=== PATIENT | female | born 1995 | race Caucasian/White ===

== ENCOUNTER 2019-10-02 10:03 | Emergency (ER) | payer OTHER ==
[2019-10-02 10:35] VITALS: BP 133/85; PULSE 83; RESP 18; TEMP 98.3
--- NOTE | 2019-10-02 11:32 | ED ---
Skin/Abscess/FB HPI - General Chief complaint: Skin/Abscess/Foreign Body Stated complaint: poss infected spider bite Time Seen by Provider: 10/02/19 11:10 Source: patient Mode of arrival: ambulatory Limitations: no limitations - History of Present Illness Initial comments: Patient is a 24-year-old female presenting to the emergency Department with complaints of a possible infected spider bite on her right lower leg. Patient states she noticed the bite approximately 3 days ago and stated looks like just a red jayson then. Patient states then it started to drain some clear fluid and now it is very painful, red around the area. She denies any fever, chills, nausea or vomiting. She states that she does not want to get any worse. She denies being at this time. She has no further complaints at this time. Upon arrival to the ER, her vitals are stable. - Related Data Previous Rx's Medication Instructions Recorded Ibuprofen [Motrin] 600 mg PO Q6HR PRN #40 day 08/27/15 Cephalexin [Keflex] 500 mg PO Q6HR #28 cap 12/20/16 Cephalexin [Keflex] 500 mg PO Q6HR 5 Days #20 cap 10/02/19 Allergies Allergy/AdvReac Type Severity Reaction Status Date / Time No Known Allergies Allergy Verified 10/02/19 10:35 Review of Systems ROS Statement: Those systems with pertinent positive or pertinent negative responses have been documented in the HPI. ROS Other: All systems not noted in ROS Statement are negative. Past Medical History Past Medical History: No Reported History History of Any Multi-Drug Resistant Organisms: None Reported Past Surgical History: Appendectomy Past Psychological History: No Psychological Hx Reported Smoking Status: Current every day smoker Past Alcohol Use History: Occasional Past Drug Use History: Marijuana General Exam - General Exam Comments Initial Comments: GENERAL: Patient is well-developed and well-nourished. Patient is nontoxic and in no acute distress. HEAD: Atraumatic, normocephalic. EYES: Pupils equal round and reactive to light, extraocular movements intact, sclera anicteric, conjunctiva are normal. Eyelids were unremarkable. ENT: TMs normal, nares patent, oropharynx clear without exudates. Moist mucous membranes. NECK: Normal range of motion, supple without lymphadenopathy or JVD. LUNGS: Unlabored respirations. Breath sounds clear to auscultation bilaterally and equal. No wheezes rales or rhonchi. HEART: Regular rate and rhythm without murmurs, rubs or gallops. ABDOMEN: Soft, nontender, normoactive bowel sounds. No guarding, no rebound. No masses appreciated. : Deferred MUSCULOSKELETAL: Normal extremities with adequate strength and normal range of motion, no pitting or edema. No clubbing or cyanosis. NEUROLOGICAL: Normal speech, normal gait. Symmetrical smile. PSYCH: Normal mood, normal affect. SKIN: Warm, Dry, normal turgor, no rashes. Patient has a small papule on her right lower leg, medial aspect that does have surrounding erythema and pain with palpation. This area does not appear to be fluctuant or indurated. Limitations: no limitations Course Vital Signs 10/02/19 10:33 Temperature 98.3 F Pulse Rate 83 Respiratory 18 Rate Blood Pressure 133/85 O2 Sat by Pulse 100 Oximetry Medical Decision Making - Medical Decision Making Patient is a 24-year-old female here with some mild cellulitis of the right lower leg from a insect bite. Her vitals are stable, afebrile. I discussed with patient to use warm compresses to the area as well as a topical antibiotic. Patient was very concerned and requesting oral antiemetics. I will start her on Keflex for cellulitis. She will follow up with her PCP. She is stable for discharge and is in agreement with this plan of care. Orders were discussed with the patient she verbalized understanding. Case discussed with Dr. Anderson. Disposition Clinical Impression: Cellulitis of right lower leg Disposition: HOME SELF-CARE Condition: Stable Instructions (If sedation given, give patient instructions): Cellulitis (ED) Additional Instructions: Please return to the Emergency Department if symptoms worsen or any other concerns. Take antibiotics as prescribed. Follow-up with PCP. Prescriptions: Cephalexin [Keflex] 500 mg PO Q6HR 5 Days #20 cap Is patient prescribed a controlled substance at d/c from ED?: No Referrals: Nonstaff,Physician [Primary Care Provider] - 1-2 days
== END 2019-10-02 12:08 | disposition home or self-care (01) ==
LOC: EC 10:03
DX: L03.115 Cellulitis of right lower limb (principal); F17.200 Nicotine dependence, unspecified, uncomplicated; S80.861A Insect bite (nonvenomous), right lower leg, initial encounter; W57.XXXA Bitten or stung by nonvenomous insect and other nonvenomous arthropods, initial encounter; Y92.009 Unspecified place in unspecified non-institutional (private) residence as the place of occurrence of the external cause
CPT/HCPCS: 99283

== ENCOUNTER 2019-11-26 18:05 | Emergency (ER) | payer OTHER ==
[2019-11-26] MEDS ORDERED: PROPARACAINE 0.5% OPHTH DROPS 15 ML BTL BOTH EYES STA (18:15)
[2019-11-26] MEDS ORDERED: FLUORESCEIN STRIPS 1 MG STRIP BOTH EYES ONE (18:16)
--- NOTE | 2019-11-26 18:33 | ED ---
General Adult HPI - General Chief complaint: ENT Stated complaint: Right Eye Time Seen by Provider: 11/26/19 18:13 Source: patient, RN notes reviewed, old records reviewed Mode of arrival: ambulatory Limitations: no limitations - History of Present Illness Initial comments: 24-year-old female presenting with 2 separate issues. First complaint is of rig ht eye irritation. She states several weeks ago she thinks she got an eyelash in her eye and this began to be quite irritating. This has persisted there was a interval time of improvement however over the past several days it has worsened again she reports some blurry vision. And clear drainage. Denies fever or chills. Denies any specific injury to the eye. Second complaint, is suicidal ideation. She states she's had some recent loss, increased depression. She states she does think of suicide and states that she has several guns in the house. - Related Data Previous Rx's Medication Instructions Recorded Ibuprofen [Motrin] 600 mg PO Q6HR PRN #40 day 08/27/15 Cephalexin [Keflex] 500 mg PO Q6HR #28 cap 12/20/16 Cephalexin [Keflex] 500 mg PO Q6HR 5 Days #20 cap 10/02/19 Allergies Allergy/AdvReac Type Severity Reaction Status Date / Time No Known Allergies Allergy Verified 11/26/19 18:12 Review of Systems ROS Statement: Those systems with pertinent positive or pertinent negative responses have been documented in the HPI. ROS Other: All systems not noted in ROS Statement are negative. Past Medical History Past Medical History: No Reported History History of Any Multi-Drug Resistant Organisms: None Reported Past Surgical History: Appendectomy Past Psychological History: No Psychological Hx Reported Smoking Status: Current every day smoker Past Alcohol Use History: Occasional Past Drug Use History: Marijuana General Exam Limitations: no limitations General appearance: alert, in no apparent distress Head exam: Present: atraumatic, normocephalic Eye exam: Present: normal appearance, PERRL, EOMI, conjunctival injection. Absent: scleral icterus, periorbital swelling, periorbital tenderness ENT exam: Present: normal exam Neck exam: Present: normal inspection. Absent: tenderness, meningismus Respiratory exam: Present: normal lung sounds bilaterally, respiratory distress Cardiovascular Exam: Present: regular rate, normal rhythm GI/Abdominal exam: Present: soft. Absent: distended, tenderness, guarding Extremities exam: Present: normal inspection, normal capillary refill. Absent: pedal edema, calf tenderness Neurological exam: Present: alert, oriented X3, CN II-XII intact. Absent: motor sensory deficit Psychiatric exam: Present: depressed, suicidal ideation Skin exam: Present: warm, dry, intact. Absent: cyanosis, diaphoretic Course Vital Signs 11/26/19 18:09 Temperature 97.8 F Pulse Rate 91 Respiratory 18 Rate Blood Pressure 140/89 O2 Sat by Pulse 98 Oximetry - Reevaluation(s) Reevaluation #1: 11/26/19 18:41 Patient cleared for mental health evaluation. Reevaluation #2: 11/26/19 18:41 Regarding the patient's eye complaint, she does have conjunctivitis, the cornea is clear, there is no hyphema, this is reactive to light. She has a pressure of 13 in the right eye. There is no corneal abrasion noted on fluorescein exam. She is placed on erythromycin, she is provided this medication the emergency department and she will follow-up with ophthalmology. Medical Decision Making - Medical Decision Making Patient will follow-up with ophthalmology regarding her conjunctivitis and eye irritation. She had been evaluated by [facility] regarding her suicidal thoughts. She has signed a safety plan and will follow up as an outpatient. She is given resources in the emergency department. She has no active plans for suicide. Disposition Clinical Impression: Conjunctivitis, Depressed Disposition: HOME SELF-CARE Condition: Fair Instructions (If sedation given, give patient instructions): Conjunctivitis (ED), Depression (ED) Is patient prescribed a controlled substance at d/c from ED?: No Referrals: None,Stated [Primary Care Provider] - 1-2 days Cole Pillai MD [STAFF PHYSICIAN] - 1-2 days Kimberlee Shah MD [REFERRING] - 1-2 days Time of Disposition: 19:52
[2019-11-26] MEDS ORDERED: ERYTHROMYCIN 5 MG/GM OPHTH OINT 3.5 GM TUBE RIGHT EYE SCH (18:45)
[2019-11-26 20:13] VITALS: BP 126/86; PULSE 81; RESP 16; TEMP 97.9
[2019-11-26 23:49] LABS: Urine Alcohol Negative (Negative); Urine Barbiturate Negative (Negative); Urine Cocaine Negative (Negative); Urine Methadone Negative (Negative); Urine Opiates Negative (Negative); Urine Phencyclidine Negative (Negative)
== END 2019-11-26 20:00 | disposition home or self-care (01) ==
LOC: EC 18:05
DX: H10.9 Unspecified conjunctivitis (principal); R45.851 Suicidal ideations; F32.9 Major depressive disorder, single episode, unspecified; F17.200 Nicotine dependence, unspecified, uncomplicated
CPT/HCPCS: 80306; 82075; 99285

== ENCOUNTER 2020-01-04 10:37 | Emergency (ER) | payer OTHER ==
[2020-01-04 10:44] VITALS: RESP 18
[2020-01-04] MEDS ORDERED: KETOROLAC 15 MG/ML 1 ML VIAL IM STA (10:53)
[2020-01-04] MEDS ORDERED: methylPREDNISolone SOD SUCCI 125 MG/2 ML VIAL IM ONE (10:53)
[2020-01-04] MEDS ORDERED: DIAZEPAM 5 MG/ML 2 ML INJ IM ONE (10:53)
--- NOTE | 2020-01-04 10:57 | ED ---
General Adult HPI - General Chief complaint: Neck Pain/Injury Stated complaint: Neck Pain Time Seen by Provider: 01/04/20 10:45 Source: patient, RN notes reviewed, old records reviewed Mode of arrival: ambulatory Limitations: no limitations - History of Present Illness Initial comments: 24-year-old female presents emergency department today with 3 days of spasming over the left side of her neck into her left shoulder. She reports that she was doing some lifting and helping a friend move over the weekend. Patient states that she has not taken anything for pain. She reports that she had a called off for work today with the pain and spasming in her neck and shoulder. Patient reports no chest pain or shortness of breath. She denies any fevers or chills. Denies any headache. Patient denies any recent fever, chills, shortness of breath, chest pain, back pain, abdominal pain, nausea vomiting, dysuria or hematuria, constipation or diarrhea, headaches or visual changes, or any other current symptoms. - Related Data Previous Rx's Medication Instructions Recorded Ibuprofen [Motrin] 600 mg PO Q6HR PRN #40 day 08/27/15 Cephalexin [Keflex] 500 mg PO Q6HR #28 cap 12/20/16 Cephalexin [Keflex] 500 mg PO Q6HR 5 Days #20 cap 10/02/19 Naproxen [Naprosyn] 500 mg PO BID #20 tablet 01/04/20 Orphenadrine [Norflex] 100 mg PO Q12H #12 tablet.er 01/04/20 Allergies Allergy/AdvReac Type Severity Reaction Status Date / Time No Known Allergies Allergy Verified 01/04/20 10:44 Review of Systems ROS Statement: Those systems with pertinent positive or pertinent negative responses have been documented in the HPI. ROS Other: All systems not noted in ROS Statement are negative. Past Medical History Past Medical History: No Reported History History of Any Multi-Drug Resistant Organisms: None Reported Past Surgical History: Appendectomy Past Psychological History: No Psychological Hx Reported Smoking Status: Current every day smoker Past Alcohol Use History: Occasional Past Drug Use History: Marijuana General Exam - General Exam Comments Initial Comments: 24-year-old female. No acute distress. Limitations: no limitations General appearance: alert, in no apparent distress Head exam: Present: atraumatic, normocephalic, normal inspection Eye exam: Present: normal appearance, PERRL, EOMI. Absent: scleral icterus, conjunctival injection, periorbital swelling ENT exam: Present: normal exam, mucous membranes moist Neck exam: Present: tenderness (over left paraspinal cervical muscles ). Absent: normal inspection, meningismus, full ROM, lymphadenopathy Respiratory exam: Present: normal lung sounds bilaterally. Absent: respiratory distress, wheezes, rales, rhonchi, stridor Cardiovascular Exam: Present: regular rate, normal rhythm, normal heart sounds. Absent: systolic murmur, diastolic murmur, rubs, gallop, clicks GI/Abdominal exam: Present: soft, normal bowel sounds. Absent: distended, tend erness, guarding, rebound, rigid Extremities exam: Present: normal inspection, full ROM, normal capillary refill. Absent: tenderness, pedal edema, joint swelling, calf tenderness Back exam: Present: normal inspection Neurological exam: Present: alert, oriented X3, CN II-XII intact Course Vital Signs 01/04/20 10:41 Temperature 98.0 F Pulse Rate 79 Respiratory 18 Rate Blood Pressure 123/85 O2 Sat by Pulse 100 Oximetry Medical Decision Making - Medical Decision Making 24-year-old female presents returns today with neck spasms shooting down the left shoulder. Symptoms started this weekend after some lifting. She no fall or trauma to the neck. Patient was given IM pain medications reports improvement increased range of motion of her neck at this time. She has no falls or meningeal signs. Patient has no fever. I discussed Patient needs to take muscle accident have him try medicine and heat and ice over the neck to help with muscle spasm. Discussed return parameters and following up with primary care doctor. All questions answered. Disposition Clinical Impression: Cervical paraspinal muscle spasm Disposition: HOME SELF-CARE Condition: Good Instructions (If sedation given, give patient instructions): Cervical Sprain (ED) Additional Instructions: Patient has alternate between heat and ice in the neck and back. Follow-up with primary care doctor. Return to the ED if any alarming signs or symptoms occur. Prescriptions: Naproxen [Naprosyn] 500 mg PO BID #20 tablet Orphenadrine [Norflex] 100 mg PO Q12H #12 tablet.er Is patient prescribed a controlled substance at d/c from ED?: No Referrals: None,Stated [Primary Care Provider] - 1-2 days Clifford Sol [STAFF PHYSICIAN] - 1-2 days Time of Disposition: 11:25
[2020-01-04 11:53] VITALS: BP 122/86; PULSE 75; TEMP 97.8
== END 2020-01-04 11:41 | disposition home or self-care (01) ==
LOC: EC 10:37
DX: M62.838 Other muscle spasm (principal); F17.200 Nicotine dependence, unspecified, uncomplicated
CPT/HCPCS: 99283; 96372 ×3; J2930; J3360; J1885

== ENCOUNTER 2020-08-24 16:08 | Emergency (ER) | payer OTHER ==
[2020-08-24 16:14] VITALS: RESP 18
[2020-08-24 16:16] VITALS: TEMP 98
--- NOTE | 2020-08-24 16:39 | ED ---
URI HPI - General Chief Complaint: Upper Respiratory Infection Stated Complaint: URI Time Seen by Provider: 08/24/20 16:16 Source: patient Mode of arrival: ambulatory Limitations: no limitations - History of Present Illness Initial Comments: 25-year-old female presents emergency Department with a chief complaint of cough, congestion, rhinorrhea and bilateral ear pain. States the symptoms started approximately 3 days ago with no improvement of symptoms. She reports a nonproductive cough with some chills but no fevers. States she also has a bit or sore throat but also reports sinus congestion with clear bilateral rhinorrhea. Also reports bilateral otalgia but denies any pain when pulling the ears or discharge from the ears. She denies any associated chest pain, shortness of breath nausea vomiting or diarrhea. She smokes about one pack per day of cigarettes. - Related Data Previous Rx's Medication Instructions Recorded Ibuprofen [Motrin] 600 mg PO Q6HR PRN #40 day 08/27/15 Cephalexin [Keflex] 500 mg PO Q6HR #28 cap 12/20/16 Cephalexin [Keflex] 500 mg PO Q6HR 5 Days #20 cap 10/02/19 Naproxen [Naprosyn] 500 mg PO BID #20 tablet 01/04/20 Orphenadrine [Norflex] 100 mg PO Q12H #12 tablet.er 01/04/20 Allergies Allergy/AdvReac Type Severity Reaction Status Date / Time No Known Allergies Allergy Verified 08/24/20 16:14 Review of Systems ROS Statement: Those systems with pertinent positive or pertinent negative responses have been documented in the HPI. ROS Other: All systems not noted in ROS Statement are negative. Past Medical History Past Medical History: No Reported History History of Any Multi-Drug Resistant Organisms: None Reported Past Surgical History: Appendectomy Past Psychological History: No Psychological Hx Reported Smoking Status: Current every day smoker Past Alcohol Use History: None Reported Past Drug Use History: Marijuana General Exam Limitations: no limitations General appearance: alert, in no apparent distress Head exam: Present: atraumatic, normocephalic, normal inspection Eye exam: Present: normal appearance, PERRL, EOMI Pupils: Present: normal accommodation ENT exam: Present: normal exam, normal oropharynx, mucous membranes moist, TM's normal bilaterally, normal external ear exam Neck exam: Present: normal inspection, full ROM. Absent: tenderness Respiratory exam: Present: normal lung sounds bilaterally. Absent: respiratory distress, wheezes, rales, rhonchi, stridor Cardiovascular Exam: Present: regular rate, normal rhythm, normal heart sounds. Absent: systolic murmur GI/Abdominal exam: Present: soft. Absent: distended, tenderness, guarding, rebound, rigid Extremities exam: Present: normal inspection, full ROM, normal capillary refill. Absent: tenderness, pedal edema, joint swelling Back exam: Present: normal inspection, full ROM. Absent: tenderness, CVA tenderness (R), CVA tenderness (L), muscle spasm, paraspinal tenderness, vertebral tenderness Neurological exam: Present: alert, oriented X3 Psychiatric exam: Present: normal affect, normal mood Skin exam: Present: warm, dry, intact, normal color Course Vital Signs 08/24/20 16:11 Temperature 98.0 F Pulse Rate 87 Respiratory 18 Rate Blood Pressure 135/90 O2 Sat by Pulse 99 Oximetry Medical Decision Making - Medical Decision Making 25-year-old female presents emergency Department with a chief complaint of cough, congestion, rhinorrhea and bilateral ear pain. On physical examination, lungs are clear to auscultation. Patient is otherwise well-appearing. Chest x- ray is unremarkable. Covid negative. I suspect the patient has an upper respiratory infection. Advised to take [id number] antihistamines. Return parameters were thoroughly discussed the patient's understanding and agreeable. Case discussed with - Lab Data Lab Results 08/24/20 Range/Units 16:35 Coronavirus (PCR) Not Detected (Not Detectd) Disposition Clinical Impression: Acute upper respiratory infection Disposition: HOME SELF-CARE Condition: Stable Instructions (If sedation given, give patient instructions): Upper Respiratory Infection (ED) Additional Instructions: Please return to the Emergency Department if symptoms worsen or any other concerns. Is patient prescribed a controlled substance at d/c from ED?: No Referrals: None,Stated [Primary Care Provider] - 1-2 days Time of Disposition: 17:18
--- NOTE | 2020-08-24 16:48 | XR ---
EXAMINATION TYPE: XR chest 2V DATE OF EXAM: 08/24/2020 COMPARISON: NONE HISTORY: Rib pain TECHNIQUE: 2 views FINDINGS: Heart and mediastinum are normal. Lungs are clear. Diaphragm is normal. Bony thorax appears normal. IMPRESSION: Normal chest.
[2020-08-24 17:39] VITALS: BP 128/78; PULSE 82
== END 2020-08-24 17:39 | disposition home or self-care (01) ==
LOC: EC 16:08
DX: J06.9 Acute upper respiratory infection, unspecified (principal); F17.210 Nicotine dependence, cigarettes, uncomplicated
CPT/HCPCS: 71046; 87635; 99283

== ENCOUNTER 2023-08-05 06:16 | Emergency (ER) | payer OTHER ==
--- NOTE | 2023-08-05 06:46 | ED ---
Nausea/Vomiting/Diarrhea HPI - General Chief complaint: Nausea/Vomiting/Diarrhea Stated complaint: Vomiting Time Seen by Provider: 08/05/23 06:39 Source: patient, RN notes reviewed Mode of arrival: ambulatory Limitations: no limitations - History of Present Illness Initial comments: 28-year-old female presents emergency department with chief complaint of nausea vomiting. Patient states has been vomiting since 9 PM last night. Patient states she has minimal abdominal pain. She states she believes this is from her Wegovy in which she states she feels she gives out too much. Patient states that she has been on Wegovy for a while. Patient denies any fevers chills chest pain no dysuria no hematuria denies any chance of . Patient offers no other complaints. - Related Data Previous Rx's Medication Instructions Recorded Ibuprofen [Motrin] 600 mg PO Q6HR PRN #40 day 08/27/15 Cephalexin [Keflex] 500 mg PO Q6HR #28 cap 12/20/16 Cephalexin [Keflex] 500 mg PO Q6HR 5 Days #20 cap 10/02/19 Naproxen [Naprosyn] 500 mg PO BID #20 tablet 01/04/20 Orphenadrine [Norflex] 100 mg PO Q12H #12 tablet.er 01/04/20 Ondansetron Odt [Zofran Odt] 4 mg PO Q8HR PRN #20 tab 08/05/23 Allergies Allergy/AdvReac Type Severity Reaction Status Date / Time No Known Allergies Allergy Verified 08/05/23 06:35 Review of Systems ROS Statement: Those systems with pertinent positive or pertinent negative responses have been documented in the HPI. ROS Other: All systems not noted in ROS Statement are negative. Past Medical History Past Medical History: No Reported History History of Any Multi-Drug Resistant Organisms: None Reported Past Surgical History: Appendectomy Past Psychological History: No Psychological Hx Reported Smoking Status: Current every day smoker, Vaper Past Alcohol Use History: None Reported Past Drug Use History: Marijuana General Exam Limitations: no limitations General appearance: alert, in no apparent distress Head exam: Present: atraumatic, normocephalic, normal inspection Eye exam: Present: normal appearance, PERRL, EOMI. Absent: scleral icterus, conjunctival injection, periorbital swelling ENT exam: Present: normal exam, mucous membranes moist Neck exam: Present: normal inspection. Absent: tenderness, meningismus, lymphadenopathy Respiratory exam: Present: normal lung sounds bilaterally. Absent: respiratory distress, wheezes, rales, rhonchi, stridor Cardiovascular Exam: Present: regular rate, normal rhythm, normal heart sounds. Absent: systolic murmur, diastolic murmur, rubs, gallop, clicks GI/Abdominal exam: Present: soft, normal bowel sounds. Absent: distended, tenderness, guarding, rebound, rigid Course Vital Signs 08/05/23 08/05/23 06:34 09:14 Temperature 98.3 F 98.2 F Pulse Rate 85 87 Respiratory 18 18 Rate Blood Pressure 153/85 125/89 O2 Sat by Pulse 99 98 Oximetry Medical Decision Making - Medical Decision Making Was pt. sent in by a medical professional or institution (, PA, CAN FEEDER, urgent care, hospital, or residential...) When possible be specific @ -No Did you speak to anyone other than the patient for history (EMS, parent, family, police, friend...)? What history was obtained from this source @ -No Did you review nursing and triage notes (agree or disagree)? Why? @ -I reviewed and agree with nursing and triage notes Were old charts reviewed (outside hosp., previous admission, EMS record, old EKG, old radiological studies, urgent care reports/EKG's, residential records)? Report findings @ -No old charts were reviewed Differential Diagnosis (chest pain, altered mental status, abdominal pain women, abdominal pain men, vaginal bleeding, weakness, fever, dyspnea, syncope, headache, dizziness, GI bleed, back pain, seizure, CVA, palpatations, mental health, musculoskeletal)? @ -Differential Abdominal Pain Women: Appendicitis, Cholecystitis, diverticulosis, ischemic bowel, pancreatitis, hepatitis, UTI, gastroenteritis, AAA, incarcerated hernia, bowel obstruction, constipation, inflammatory bowel, hepatitis, peptic ulcer disease, splenic infarction, perforated viscus, vulvitis, ovarian torsion, PID, kidney stone, placenta abruption, this is not meant to be an all-inclusive list EKG interpreted by me (3pts min.). @ -None X-rays interpreted by me (1pt min.). @ -None done CT interpreted by me (1pt min.). @ -None done U/S interpreted by me (1pt. min.). @ -None done What testing was considered but not performed or refused? (CT, X-rays, U/S, labs)? Why? @ -Consider CT for leukocytosis though patient has no localized abdominal pain symptoms improved What meds were considered but not given or refused? Why? @ -None Did you discuss the management of the patient with other professionals (professionals i.e. , PA, CAN FEEDER, lab, RT, psych nurse, health and social care teacher, auto club travel counselor, teacher, real estate officer, case management coordinator)? Give summary @ -No Was smoking cessation discussed for >3mins.? @ -No Was critical care preformed (if so, how long)? @ -No Were there social determinants of health that impacted care today? How? (Homelessness, low income, unemployed, alcoholism, drug addiction, transportation, low edu. Level, literacy, decrease access to med. care, [place] [facility], rehab)? @ -No Was there de-escalation of care discussed even if they declined (Discuss DNR or withdrawal of care, Hospice)? DNR status @ -No What co-morbidities impacted this encounter? (DM, HTN, Smoking, COPD, CAD, Cancer, CVA, ARF, Chemo, Hep., AIDS, mental health diagnosis, sleep apnea, morbid obesity)? @ -None Was patient admitted / discharged? Hospital course, mention meds given and route, prescriptions, significant lab abnormalities, going to OR and other pertinent info. @ -Discharge patient presented for nausea vomiting after using Wegovy. Patient feels improved after IV fluids and antiemetics will be discharged in stable condition she did have mild leukocytosis most likely reactive as she has no localized abdominal pain Undiagnosed new problem with uncertain prognosis? @ -No Drug Therapy requiring intensive monitoring for toxicity (Heparin, Nitro, Insulin, Cardizem)? @ -No Were any procedures done? @ -No Diagnosis/symptom? @ -Nausea Acute, or Chronic, or Acute on Chronic? @ -Acute Uncomplicated (without systemic symptoms) or Complicated (systemic symptoms)? @ -Uncomplicated Side effects of treatment? @ -No Exacerbation, Progression, or Severe Exacerbation? @ -No Poses a threat to life or bodily function? How? (Chest pain, [place], [place], pneumonia, PE, COPD, DKA, ARF, appy, cholecystitis, CVA, Diverticulitis, Homicidal, Suicidal, threat to staff... and all critical care pts) @ -No - Lab Data Result diagrams: 08/05/23 06:50 08/05/23 06:50 Lab Results 08/05/23 08/05/23 08/05/23 Range/Units 06:50 06:50 08:12 WBC 17.4 H (3.8-10.6) k/uL RBC 5.80 H (3.80-5.40) m/uL Hgb 16.4 H (11.4-16.0) gm/dL Hct 49.2 H (34.0-46.0) % MCV 84.8 (80.0-100.0) fL MCH 28.3 (25.0-35.0) pg MCHC 33.3 (31.0-37.0) g/dL RDW 13.2 (11.5-15.5) % Plt Count 498 H (150-450) k/uL MPV 7.3 Neutrophils % 89 % Lymphocytes % 8 % Monocytes % 2 % Eosinophils % 1 % Basophils % 0 % Neutrophils # 15.4 H (1.3-7.7) k/uL Lymphocytes # 1.4 (1.0-4.8) k/uL Monocytes # 0.3 (0-1.0) k/uL Eosinophils # 0.1 (0-0.7) k/uL Basophils # 0.0 (0-0.2) k/uL Sodium 138 (137-145) mmol/L Potassium 4.5 (3.5-5.1) mmol/L Chloride 102 (98-107) mmol/L Carbon Dioxide 24 (22-30) mmol/L Anion Gap 12 mmol/L BUN 9 (7-17) mg/dL Creatinine 0.53 (0.52-1.04) mg/dL Est GFR (CKD-EPI)AfAm >90 (>60 ml/min/1.73 sqM) Est GFR (CKD-EPI)NonAf >90 (>60 ml/min/1.73 sqM) Glucose 97 (74-99) mg/dL Calcium 10.6 H (8.4-10.2) mg/dL Total Bilirubin 1.1 (0.2-1.3) mg/dL AST 25 (14-36) U/L ALT 14 (4-34) U/L Alkaline Phosphatase 93 (38-126) U/L Total Protein 9.6 H (6.3-8.2) g/dL Albumin 5.4 H (3.5-5.0) g/dL Lipase 189 (23-300) U/L HCG, Qual Not Detected Urine Color Colorless Urine Appearance Clear (Clear) Urine pH 7.0 (5.0-8.0) Ur Specific [place] 1.006 (1.001-1.035) Urine Protein Negative (Negative) Urine Glucose (UA) Negative (Negative) Urine Ketones 1+ H (Negative) Urine Blood Negative (Negative) Urine Nitrite Negative (Negative) Urine Bilirubin Negative (Negative) Urine Urobilinogen <2.0 (<2.0) mg/dL Ur Leukocyte Esterase Negative (Negative) Disposition Clinical Impression: Nausea & vomiting Disposition: HOME SELF-CARE Condition: Stable Instructions (If sedation given, give patient instructions): Acute Nausea and Vomiting (ED) Additional Instructions: Please return to the Emergency Department if symptoms worsen or any other concerns. Prescriptions: Ondansetron Odt [Zofran Odt] 4 mg PO Q8HR PRN #20 tab PRN Reason: Nausea Is patient prescribed a controlled substance at d/c from ED?: No Referrals: Marvin Boateng MD [Primary Care Provider] - 1-2 days Time of Disposition: 08:56
[2023-08-05] MEDS: SODIUM CHLORIDE 0.9% 2,000 ML IV STA (06:54)
[2023-08-05] MEDS: ONDANSETRON 4 MG/2 ML VIAL IVP STA ×2 (06:55→09:03)
[2023-08-05 07:08] LABS: Basophils % (A) 0 %; Eosinophils # (A) 0.1 k/uL (0-0.7); Eosinophils % (A) 1 %; HCT 49.2 % (34.0-46.0); HGB 16.4 gm/dL (11.4-16.0); Lymphocytes # (A) 1.4 k/uL (1.0-4.8); Lymphocytes % (A) 8 %; MCH 28.3 pg (25.0-35.0); MCHC 33.3 g/dL (31.0-37.0); MCV 84.8 fL (80.0-100.0); Mean Platelet Volume 7.3; Monocytes # (A) 0.3 k/uL (0-1.0); Monocytes % (A) 2 %; Neutrophils # (A) 15.4 k/uL (1.3-7.7); Neutrophils % (A) 89 %; Platelet Count 498 k/uL (150-450); RDW 13.2 % (11.5-15.5); WBC 17.4 k/uL (3.8-10.6)
[2023-08-05 07:14] VITALS: RESP 18
[2023-08-05 07:22] LABS: ALT 14 U/L (4-34); AST 25 U/L (14-36); African American GFR (CKD) >90 (>60 ml/min/1.73 sqM); Albumin 5.4 g/dL (3.5-5.0); Alkaline Phosphatase 93 U/L (38-126); Anion Gap 12 mmol/L; Blood Urea Nitrogen 9 mg/dL (7-17); Calcium 10.6 mg/dL (8.4-10.2); Carbon Dioxide 24 mmol/L (22-30); Chloride 102 mmol/L (98-107); Glucose 97 mg/dL (74-99); Lipase 189 U/L (23-300); Non-African American GFR(CKD) >90 (>60 ml/min/1.73 sqM); Potassium 4.5 mmol/L (3.5-5.1); Sodium 138 mmol/L (137-145); Total Bilirubin 1.1 mg/dL (0.2-1.3); Total Protein 9.6 g/dL (6.3-8.2)
[2023-08-05 08:08] LABS: HCG,Qualitative Serum Not Detected
[2023-08-05] MEDS: METOCLOPRAMIDE 5 MG/ML 2 ML VIAL IVP STA (08:16)
[2023-08-05 08:41] LABS: Appearance,Urine Clear (Clear); Bilirubin,Urine Negative (Negative); Blood,Urine Negative (Negative); Color,Urine Colorless; Glucose,Urine (UA) Negative (Negative); Ketones,Urine 1+ (Negative); Leukocyte Esterase,Urine Negative (Negative); Nitrite,Urine Negative (Negative); Protein,Urine Negative (Negative); Specific Gravity,Urine 1.006 (1.001-1.035); Urobilinogen,Urine <2.0 mg/dL (<2.0)
[2023-08-05 09:51] VITALS: BP 125/89; PULSE 87; TEMP 98.2
== END 2023-08-05 09:18 | disposition home or self-care (01) ==
LOC: EC 06:16
DX: R11.2 Nausea with vomiting, unspecified (principal); F17.290 Nicotine dependence, other tobacco product, uncomplicated
CPT/HCPCS: 96374; 96375; 96376; 96361 ×2; 99284 ×2; 36415; 80053; 83690; 85025; 81003; 84703; J2765; J2405; 99283